=== PATIENT | male | born 1960 | race Caucasian/White ===

== ENCOUNTER 2016-07-06 22:50 | Emergency (ER) | payer OTHER ==
[~2016-07-06] VITALS: Ht 185.4 cm; Wt 68.2 kg
[2016-07-06] MEDS ORDERED: LORazepam 2 MG/ML (ATIVAN) 1 ML VIAL IV ONE (22:55)
[2016-07-06] MEDS ORDERED: LORazepam 2 MG/ML (ATIVAN) 1 ML VIAL ONE (22:55)
--- NOTE | 2016-07-06 22:55 | NUR ---
vomited Pt started having seizure like activity, pts jaw clamped down pt's face started turning blue in face, and vomited, pt suctioned, RT called, Dr. Bailon notified and came into the room as well, started ventilating pt with ambu bag 2257: CPR started due to pt's hr decreasing 2258: 1mg of Epinephrine given IV 230: 0.4mg Narcan IV 230: EMS placed the Herbert on pt for continued CPR 2302: 1mg of Epinephrine given IV 230: Intubation attempted by Dr. Uvaldo Rockwell then attempted and was successful placing a 7.5 ET tube 230: Narcan 1mg given IV 2307: Epinephrine 1mg IV 2307: Rythym check done, pt in PEA CPR resumed 2310: Epinephrine 1mg IV 2313: Dr. Bailon checks pt pupils, they are non reactive, pt remains pulseless PEA per Dr. Bailon 2316: Epinephrine 1mg IV 2318: Pulseless, monitor shows asystole 2321: CPR stopped rythym is asystole, pt pulseless Dr. Bailon out to speak to family 232: Epinephrine 1mg given IV 232: Dr. Bailon back from speaking with the family code called, pt's time of will be 2328
[2016-07-06] MEDS ORDERED: NALOXONE 0.4 MG/ML (NARCAN) 1 ML VIAL ONE ×3 (22:59→23:01)
[2016-07-06] MEDS ORDERED: EPINEPHrine 0.1 MG/ML (1:10,000) 10 ML SYRINGE ONE (23:00)
[2016-07-06] MEDS ORDERED: SODIUM CHLORIDE FLUSH 10 ML SYR ONE (23:00)
[2016-07-06] MEDS ORDERED: EPINEPHrine 1MG/ML (1:1000) 1 ML AMPUL (ADRENALIN) ONE (23:23)
--- NOTE | 2016-07-07 00:34 | NUR ---
[employer] notified all appropriate agencies of pt's expiration to include [facility]
== END 2016-07-07 02:30 | disposition expired ==
LOC: ED 22:54
DX: I46.9 Cardiac arrest, cause unspecified (principal)
CPT/HCPCS: 82803; 92950; 99284; J0171; J2310; 99283

== ENCOUNTER → 2016-07-06 | Outpatient (CLI) | payer OTHER | LOC: EMS 22:48 | PROVIDERS: ATTEND Emergency Medicine | DX: I46.9 Cardiac arrest, cause unspecified (principal); R41.82 Altered mental status, unspecified ==